=== PATIENT | male | born 1965 | race Caucasian/White ===

== ENCOUNTER 2018-09-30 18:54 | Emergency (ER) | payer BC ==
[~2018-09-30] VITALS: Ht 182.9 cm; Wt 77.1 kg
--- OUTSIDE RECORDS SUMMARY | 2018-09-30 19:00 | XMS REPORT ---
Author Author Harriet Bearden [facility] Address [address] [place], [place] [id number] Care Team Providers Care Cell Tester Name Role Phone Harriet Bearden PCP Allergies and Adverse Reactions Name Reaction Notes NO KNOWN DRUG ALLERGIES Plan of Treatment Planned Activity Comments Planned Date Planned Time Plan/Goal CBC for General Health Panel 05/17/2018 12:00 AM EKG. 05/17/2018 12:00 AM CX CHEST 2 VIEWS 05/17/2018 12:00 AM Lumbar Spine 2-3 Views - Main 05/17/2018 12:00 AM Medications Name Start Date Expiration Date SIG Comments Yeaddiss 5-325 mg oral tablet 08/21/2015 take 1-2 tablets by oral route every 4 hours Discontinued Name Start Date Discontinued Date SIG Comments Cardura Oral 08/19/2015 diclofenac sodium 50 mg oral tablet,delayed release (DR/EC) 08/19/2015 take 1 tablet (50 mg) by oral route 3 times per day doxazosin oral 08/19/2015 baclofen oral 08/19/2015 Problem List Description Status Onset Hypertension Active Back Pain Active Benign Hypertrophy of Prostate (BPH) Active Vital Signs Date Time BP-Sys(mm[Hg] BP-Regla(mm[Hg]) HR(bpm) RR(rpm) Temp WT HT HC BMI BSA BMI Percentile O2 Sat(%) 05/17/2018 10:13:00 AM 132 mmHg 72 mmHg 65 bpm 18 rpm 98.1 F 167 lbs 71 in 23.2915 kg/m 1.948 m 98 % 08/19/2015 2:39:00 PM 140 mmHg 74 mmHg 85 bpm 20 rpm 96.8 F 162 lbs 71 in 22.59 kg/m2 1.92 m2 97 % 02/28/2014 7:55:00 AM 133 mmHg 85 mmHg 74 bpm 20 rpm 98.2 F 174 lbs 71 in 24.2678 kg/m 1.9884 m 03/02/2013 3:27:00 PM 136 mmHg 76 mmHg 86 bpm 18 rpm 98.1 F 176.125 lbs 71 in 24.5642 kg/m 2.00 m2 96 % Social History Name Description Comments Tobacco 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 yellow Glucose Ur-sCnc neg Bilirub Ur Ql Strip neg Ketones Ur Ql Strip neg Sp Gr Ur Qn 1.015 Hgb Ur Ql Strip trace- intact pH Ur-LsCnc 5.0 Prot Ur Ql Strip neg Urobilinogen Ur-mCnc 0.2eu/dl Nitrite Ur Ql Strip neg WBC Est Ur Ql Strip neg History Of Immunizations Not available. History of Past Illness Name Date of Onset Comments Hypertension Benign Hypertrophy of Prostate (BPH) Back Pain Colonic Polyps, Personal History of Tubular adenoma @ 15 cm DOT Mar 02 2013 3:33PM Carpal Tunnel Syndrome Mar 09 2013 8:37AM Colon Cancer Screening Feb 28 2014 7:59AM Family History of Colon Cancer Feb 28 2014 7:59AM Recurrent left inguinal hernia Aug 19 2015 3:19PM Postoperative Follow-Up Visit Sep 09 2015 3:07PM Postoperative Follow-Up Visit Sep 23 2015 2:22PM Encounter for occupational health examination May 17 2018 10:15AM Payers Insurance Name Company Name Plan Name Plan Number Policy Number Policy Group Number Start Date Nationwide Insurance Nationwide Insurance [id number] N/A [facility] Med Occupational Medicine [id number] N/A BCBS [facility] [id number] Friday, April 21, 2000 History of Encounters Visit Date Visit Type Provider 05/17/2018 Office visit Harriet Bearden APRN 09/23/2015 Office visit Duarte Joyner MD 09/09/2015 Office visit Duarte Joyner MD 08/29/2015 [facility] Duarte Joyner MD 08/19/2015 Office visit Duarte Joyner MD 04/30/2014 Voided DUARTE THORNE 03/08/2014 [facility] Duarte Joyner MD 02/27/2014 Office visit Duarte Joyner MD 03/09/2013 Procedures Carlee Parker MD 03/02/2013 Office visit Harriet Bearden APRN
--- OUTSIDE RECORDS SUMMARY | 2018-09-30 19:00 | XMS REPORT ---
Author Author Harriet Bearden [facility] Address [address] [place], [place] [phone] Care Team Providers Care Farmworker Field Crop Name Role Phone Harriet Bearden PCP Allergies and Adverse Reactions Name Reaction Notes NO KNOWN DRUG ALLERGIES Plan of Treatment Planned Activity Comments Planned Date Planned Time Plan/Goal CBC for General Health Panel 05/17/2018 12:00 AM EKG. 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 Date Ordered Description Order Status 05/17/2018 12:00 AM CHEST X-RAY 2VW FRONTAL&LATL Returned 05/17/2018 12:00 AM X-RAY EXAM L-S SPINE 2/3 VWS Returned 05/17/2018 12:04 PM URINALYSIS AUTO W/O SCOPE [...] Number Start Date Nationwide Insurance Nationwide Insurance [id number] N/A [facility] Med Occupational Medicine [id number] N/A BCBS [facility]cbs [facility] [id number] Friday, April 21, 2000 History of Encounters Visit Date Visit Type Provider 05/17/2018 Office visit Harriet Bearden MARINE SCIENTIST 09/23/2015 Office visit Duarte Joyner MD 09/09/2015 Office visit Duarte Joyner MD 08/29/2015 [facility] Duarte Joyner MD 08/19/2015 Office visit Duarte Joyner MD 04/30/2014 Voided DUARTE THORNE 03/08/2014 Hospital Duarte Joyner MD 02/27/2014 Office visit Duarte Joyner MD 03/09/2013 Procedures Carlee Parker MD 03/02/2013 Office visit Harriet Bearden APRN
--- OUTSIDE RECORDS SUMMARY | 2018-09-30 19:00 | XMS REPORT | CCD ---
Author Author ALAN KIM Organization Unknown Address [address] [address] [place], [place] [phone] Care Team Providers Care Philatelic Consultant Name Role Phone BRIGITTE WILLSON MD Vital Signs Vital Sign Value Unit Date/Time Recent/Initial? Weight Measured 162 lbs 08/28/2015 12:28 Initial VS Height 71 in 08/28/2015 12:28 Initial VS BMI (Body Mass Index) 22.59 kg/m^2 08/28/2015 12:28 Initial VS BSA (Body Surface Area) 1.92 m^2 08/28/2015 12:28 Initial VS BP Systolic 124 mmHg 08/29/2015 09:49 Initial VS BP Diastolic 81 mmHg 08/29/2015 09:49 Initial VS Respiratory Rate 12 bpm 08/29/2015 09:49 Initial VS Heart Rate 79 bpm 08/29/2015 09:49 Initial VS O2 % BldC Oximetry 100 % 08/29/2015 09:49 Initial VS BP Systolic 121 mmHg 08/29/2015 13:33 Most Recent VS BP Diastolic 78 mmHg 08/29/2015 13:33 Most Recent VS Respiratory Rate 17 bpm 08/29/2015 13:33 Most Recent VS Heart Rate 85 bpm 08/29/2015 13:33 Most Recent VS O2 % BldC Oximetry 98 % 08/29/2015 13:33 Most Recent VS Allergies Allergy Code Allergy Type Reaction Status No Known Drug Allergies 0 No known drug allergies Active Procedures Procedure Code Procedure Type Date Laparoscopy, surgical; repair recurrent inguinal hernia 94664 CPT 08/29/2015 History of Immunizations Immunization Code Date Hep B, adult 43 04/05/2000 Hep B, adult 43 06/18/2000 Hep B, adult 43 10/14/2000 Problems Unknown or Not Available. Results Unknown or Not Available. Active Medications No Active Medications Medications Administered During Visit Unknown or Not Available. Encounters Encounter Diagnosis Diagnosis Code Start Date Unilateral inguinal hernia, without obstruction or gangrene, recurrent [id number] 08/29/2015 Social History Smoking Status Code Start Date End Date Current every day smoker [id number] Patient Decision Aids Patient Decision Aid HERNIA REPAIR; AFTER THE PROCEDURE Discharge Instructions You were admitted to [facility] on 08/29/2015 09:16 with a principal diagnosis of Unilateral inguinal hernia, without obstruction or gangrene, recurrent You had the following procedures done: Laparoscopy, surgical; repair recurrent inguinal hernia You were discharged from [facility] on 08/29/2015 14:43 Should you have any questions prior to discharge, please contact a member of your healthcare team. If you have left the hospital and have any questions, please contact your primary care physician. Chief Complaint and Reason For Visit Chief Complaint Date of Onset ROBOTIC HERNIA Function Status Unknown or Not Available. Plan of Care Unknown or Not Available. Referral/Transition of Care Unknown or Not Available.
--- OUTSIDE RECORDS SUMMARY | 2018-09-30 19:01 | XMS REPORT | Continuity of Care Document ---
Author Organization Unknown Address Unknown Allergies Active Description Code Type Severity Reaction Onset Reported/Identified Relationship to Patient Clinical Status Yes No Known Drug Allergies [id number] N/A N/A Yes No known allergies Drug N/A N/A Medications There is no data. Problems There is no data. Procedures There is no data. Results There is no data. Encounters ACCT No. Visit Date/Time Discharge Status Pt. Type Provider Facility Loc./Unit Complaint [id number] 05/17/2018 10:45:01 05/17/2018 23:59:59 CLS Outpatient Harriet Bearden [id number] 09/18/2015 09:51:25 09/18/2015 23:59:59 CLS Outpatient Duarte Joyner [id number] 09/09/2015 15:53:23 09/09/2015 23:59:59 [facility] Outpatient Duarte Joyner [id number] 08/19/2015 15:31:39 08/19/2015 23:59:59 [facility] Outpatient Duarte Joyner [id number] 04/30/2014 16:02:32 04/30/2014 23:59:59 CLS Outpatient DUARTE KIMBLE [id number] 03/14/2014 14:39:02 03/14/2014 23:59:59 [facility] Outpatient Duarte Joyner [id number] 02/27/2014 16:46:32 02/27/2014 23:59:59 [facility] Outpatient Duarte Joyner [id number] 12/30/2016 14:38:28 Document Registration [id number] 05/18/2018 09:58:07 Document Registration [id number] 05/17/2018 10:49:39 Document Registration [id number] 05/17/2018 10:42:45 Document Registration [id number] 05/06/2018 10:00:40 Document Registration
--- OUTSIDE RECORDS SUMMARY | 2018-09-30 19:01 | XMS REPORT ---
Author Author Duarte Joyner [facility] Address [address] [place], [place] [id number] Care Team Providers Care Urologic Nurse Name Role Phone Duarte Joyner PCP Unavailable Allergies and Adverse Reactions Name Reaction Notes NO KNOWN DRUG ALLERGIES Plan of Treatment Not available. 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 History Of Immunizations Not available. History of [...] Postoperative Follow-Up Visit Sep 09 2015 3:07PM Payers Insurance Name Company Name Plan Name Plan Number Policy Number Policy Group Number Start Date Nationwide Insurance Nationwide Insurance [id number] N/A [facility] Med Occupational Medicine [id number] N/A BCBS [facility]cbs [facility] [id number] Friday, April 21, 2000 History of Encounters Visit Date Visit Type Provider 09/09/2015 Office visit Duarte Joyner MD 08/19/2015 Office visit Duarte Joyner MD 04/30/2014 Voided DUARTE THORNE 03/08/2014 Hospital Duarte Joyner MD 02/27/2014 Office visit Duarte Joyner MD 03/09/2013 Procedures Carlee Parker MD 03/02/2013 Office visit Harriet Bearden APRN
--- OUTSIDE RECORDS SUMMARY | 2018-09-30 19:01 | XMS REPORT ---
Author Author Duarte Joyner [facility] Address [address] [place], [place] [phone] Care Team Providers Care Meal Miller Name Role Phone Duarte Joyner PCP Unavailable Allergies and Adverse Reactions Name Reaction Notes NO KNOWN DRUG ALLERGIES Plan of Treatment Not available. 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 Procedures Date Ordered Description [...] Postoperative Follow-Up Visit Sep 23 2015 2:22PM Payers Insurance Name Company Name Plan Name Plan Number Policy Number Policy Group Number Start Date Nationwide Insurance Nationwide Insurance [id number] N/A [facility] Med Occupational Medicine [id number] N/A [facility] [id number] Friday, April 21, 2000 History of Encounters Visit Date Visit Type Provider 09/23/2015 Office visit Duarte Joyner MD 09/09/2015 Office visit Duarte Joyner MD 08/29/2015 [facility] Duarte Joyner MD 08/19/2015 Office visit Duarte Joyner MD 04/30/2014 Voided DUARTE THORNE 03/08/2014 [facility] Duarte Joyner MD 02/27/2014 Office visit Duarte Joyner MD 03/09/2013 Procedures Carlee Parker MD 03/02/2013 Office visit Harriet Bearden APRN
--- OUTSIDE RECORDS SUMMARY | 2018-09-30 19:01 | XMS REPORT ---
Author Author Duarte Joyner [facility] Address [address] [place], [place] [phone] Care Team Providers Care Traffic Reporter Name Role Phone Duarte Joyner PCP Unavailable Allergies and Adverse Reactions Name Reaction Notes NO KNOWN DRUG ALLERGIES Plan of Treatment Not available. 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 Procedures Date Ordered Description Order [...] left inguinal hernia Aug 19 2015 3:19PM Payers Insurance Name Company Name Plan Name Plan Number Policy Number Policy Group Number Start Date BCBS Bcbs [facility] [id number] Friday, 2000 Nationwide Insurance Nationwide Insurance [id number] N/A [facility] Med Occupational Medicine [id number] N/A History of Encounters Visit Date Visit Type Provider 08/19/2015 Office visit Duarte Joyner MD 04/30/2014 Voided DUARTE THORNE 03/08/2014 Hospital Duarte Joyner MD 02/27/2014 Office visit Duarte Joyner MD 03/09/2013 Procedures Carlee Parker MD 03/02/2013 Office visit Harriet Bearden APRN
--- OUTSIDE RECORDS SUMMARY | 2018-09-30 19:01 | XMS REPORT ---
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
--- OUTSIDE RECORDS SUMMARY | 2018-09-30 19:01 | XMS REPORT ---
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
[2018-09-30] MEDS ORDERED: CARV3.122 PO (19:06)
[2018-09-30] MEDS ORDERED: ATOR80TA76 PO (19:07)
[2018-09-30] MEDS ORDERED: CLOP75TA28 PO (19:07)
[2018-09-30] MEDS ORDERED: RAMI2.5C2 PO (19:07)
[2018-09-30] MEDS ORDERED: ASPI-586 PO (19:08)
[2018-09-30] MEDS ORDERED: PHENYLEPHRINE 0.25% NASAL SPR (NEO-SYNEPHRINE) 15 ML NS STA (19:16)
--- NOTE | 2018-09-30 19:25 | ED EENT ---
History of Present Illness General Chief Complaint: Nasal Problems Stated Complaint: NOSE BLEEDING Nursing Triage Note: PATIENT AMBULATORY TO ER WITH COMPLAINT OF NOSEBLEED THIS EVENING. PATIENT STATES HE HAPPENED TO PICK HIS NOSE AT APPROXIMATELY 5 PM AND HIS NOSE STARTED BLEEDING. HE STATES HE HAS NOT BEEN ABLE TO GET THE BLEEDING TO STOP. PATIENT IS ON BLOOD THINNERS. PATIENT STATES INITIALLY JUST THE LEFT NOSTRIL WAS BLEEDING BUT BOTH NOTRILS ARE BLEEDING. Source: patient Exam Limitations: no limitations History of Present Illness Date Seen by Provider: Sep 30, 2018 Time Seen by Provider: 19:07 Initial Comments Here with report of nosebleed that is on the left side and started between 5 and 5:30 PM. He is on blood thinners including clopidogrel and aspirin. He tried to plug his nostril and then the blood started coming out the right side as well. He is holding paper towels over his nose and pinching the low portion. Denies injury. He has not had nosebleeds like this previously. He has on the clopidogrel secondary to stent placed 2 years ago. Timing/Duration: abrupt Severity: moderate Location: nose Prearrival Treatment: squeezing nostrils, nasal packing Associated Symptoms: No cough, No fever, No sinus infection Allergies and Home Medications Allergies Coded Allergies: No Known Drug Allergies (Unverified , 09/30/18) Home Medications Aspirin 81 Mg Tablet.dr, 81 MG PO DAILY, (Reported) Atorvastatin Calcium 80 Mg Tablet, 80 MG PO DAILY, (Reported) Carvedilol 3.125 Mg Tablet, 3.125 MG PO BID, (Reported) Clopidogrel Bisulfate 75 Mg Tablet, 75 MG PO DAILY, (Reported) Ramipril 2.5 Mg Capsule, 2.5 MG PO DAILY, (Reported) Patient Home Medication List Home Medication List Reviewed: Yes Review of Systems Review of Systems Constitutional: see HPI; No chills, No fever Nose: see HPI, clots, epistaxis Mouth: no symptoms reported Throat: no symptoms reported Respiratory: no symptoms reported Cardiovascular: see HPI; No chest pain, No palpitations Gastrointestinal: no symptoms reported Neurological: No Symptoms Reported Past Rbkisek-Gtznoc-Kgxous Hx Past Med/Social Hx: Reviewed Nursing Past Med/Soc Hx Patient Social History Alcohol Use: Denies Use Recreational Drug Use: No Smoking Status: Current Everyday Smoker Type Used: Cigarettes 2nd Hand Smoke Exposure: Yes Recent Foreign Travel: No Contact w/Someone Who Travel: No Recent Infectious Disease Expo: No Recent Hopitalizations: No Immunizations Up To Date PED Vaccines UTD: Yes Seasonal Allergies Seasonal Allergies: Yes Past Medical History Surgeries: Yes (HERNIA REPAIR, 2 CARDIAC STENTS) Coronary Stent Respiratory: No Cardiac: Yes (2 STENTS) Coronary Artery Disease, High Cholesterol, Hypertension Neurological: No Genitourinary: No Gastrointestinal: No Musculoskeletal: No Endocrine: No HEENT: Yes (NOSE BLEEDS) Cancer: No Psychosocial: No Integumentary: No Blood Disorders: No Family Medical History Reviewed Nursing Family Hx Physical Exam Vital Signs Vital Signs - First Documented 09/30/18 18:58 Temp 98.4 Pulse 71 Resp 18 B/P (MAP) 138/92 (107) O2 Delivery Room Air Height, Weight, BMI Height: 6'0" Weight: 170lbs. oz. 77.540689mt; BMI Method:Stated General Appearance: WD/WN, no apparent distress Eyes: bilateral eye normal inspection, bilateral eye PERRL, bilateral eye EOMI Nose: active bleeding; No sinus tenderness Mouth/Throat: normal mouth inspection, other (old blood in the pharynx) Neck: full range of motion, supple Cardiovascular: regular rate, rhythm, no murmur Respiratory: lungs clear, normal breath sounds Gastrointestinal: non tender, soft Neurologic/Psychiatric: alert, oriented x 3 Skin: normal color, warm/dry Progress/Results/Core Measures Results/Orders My Orders Orders - BONITA REIS MD Phenylephrine 0.25% Nasal Spra (Augusto-Syne (09/30/18 19:16) Tranexamic Acid Injection (Cyklokapron I (09/30/18 20:00) Medications Given in ED Current Medications Medications Dose Ordered Sig/Jaqui Route Start Time Stop Time Status Last Admin Dose Admin Tranexamic Acid 100 mg ONCE ONCE IV 09/30/18 20:00 09/30/18 20:01 DC 09/30/18 20:14 100 MG Vital Signs/I&O 09/30/18 18:58 Temp 98.4 Pulse 71 Resp 18 B/P (MAP) 138/92 (107) O2 Delivery Room Air Blood Pressure Mean: 107 Progress Progress Note : Progress Note Seen and evaluated. Old blood self-evacuated from posterior pharynx. Blood continues from left nare. Augusto-Synephrine 4 sprays to each nostril and external pressure reapplied by patient. Monitor patient. 2009: Patient had continued bleeding. Nasal packing soaked with TXA approximately 100 mg topically applied to the left nare. 2114: Bleeding was not abated with nasal packing. Rapid Rhino 7.5 cm placed and balloon expanded until bleeding was controlled. This did stop the bleeding. I did discuss with the patient about having to keep this in place. We will keep this place until Wednesday, 2 days from now on we will remove it in the emergency department if all remains stable. If not then he will need follow-up with your nose and throat surgeon. This was discussed with the patient family who agree. Discharged home with return precautions. Patient verbalized understanding instructions and agreement with plan. Departure Impression Primary Impression: Epistaxis Disposition: HOME, SELF-CARE Condition: Improved Departure-Patient Inst. Decision time for Depature: 21:22 Referrals: NO,LOCAL PHYSICIAN (PCP/Family) Primary Care Physician Patient Instructions: Nosebleeds (DC) Add. Discharge Instructions: All discharge instructions reviewed with patient and/or family. Voiced understanding. Keep the packing in place until Wednesday. Return here on Wednesday for packing removal. If you have increased bleeding or persistent bleeding, return for reevaluation. Return for worse pain, fever, vomiting, weakness, breathing problems, fever or other concerns as needed. It is okay for you to continue your home medications. BONITA REIS MD Sep 30, 2018 19:25
[2018-09-30] MEDS ORDERED: TRANEXAMIC ACID 100 MG/ML 10 ML INJECTION IV ONE (20:00)
--- NOTE | 2018-09-30 21:10 | NUR ---
RAPID SATISH 7.[address] REIS, INFLATED WITH 6CC OF AIR.
[2018-09-30 21:38] VITALS: BP 135/90
== END 2018-09-30 21:39 | disposition home or self-care (01) ==
LOC: EDUNIT# 18:54 → ER 18:56
DX: R04.0 Epistaxis (principal); I25.10 Atherosclerotic heart disease of native coronary artery without angina pectoris; E78.00 Pure hypercholesterolemia, unspecified; I10 Essential (primary) hypertension; F17.210 Nicotine dependence, cigarettes, uncomplicated; Z95.5 Presence of coronary angioplasty implant and graft; Z79.02 Long term (current) use of antithrombotics/antiplatelets; Z79.82 Long term (current) use of aspirin; Z77.22 Contact with and (suspected) exposure to environmental tobacco smoke (acute) (chronic); Z98.890 Other specified postprocedural states

== ENCOUNTER 2018-10-02 10:55 | Emergency (ER) | payer BC ==
[~2018-10-02] VITALS: Ht 182.9 cm; Wt 77.1 kg
[~2018-10-02 10:55] MED LIST: ASPI-586 PO; ATOR80TA76 PO; CARV3.122 PO; CLOP75TA28 PO; RAMI2.5C2 PO
--- NOTE | 2018-10-02 11:22 | ED Suture Removal/Wound Check ---
Suture/Wound Re-check Suture Removal/Wound Recheck : Suture Removal/Wound Recheck: Packing removed Progress 53-year-old male who presents to the emergency room with complaints of rapid Rhino packing to his left nostril. This was placed 2 days ago in the emergency room by Dr. Martin and he was instructed to follow-up today for removal. I have removed the packing and the near remains free of blood at this time. Patient denies pain. General Appearance: WD/WN, no apparent distress Neuro/Tendon: normal sensation Skin Exam: normal color, warm/dry Physical Exam Vital Signs Capillary Refill : General Appearance: WD/WN, no apparent distress HEENT: PERRL/EOMI, normal ENT inspection, TMs normal, pharynx normal Cardiovascular: normal peripheral pulses, regular rate, rhythm, no edema, no gallop, no JVD, no murmur Respiratory: chest non-tender, lungs clear, normal breath sounds, no respiratory distress, no accessory muscle use Neurologic/Psychiatric: alert, normal mood/affect, oriented x 3 Skin: normal color, warm/dry Departure Impression Primary Impression: resolved epistaxis Disposition: 01 HOME, SELF-CARE Condition: Stable/Unchanged Departure-Patient Inst. Decision time for Depature: 11:21 Referrals: NO,LOCAL PHYSICIAN (PCP/Family) Primary Care Physician Patient Instructions: Nosebleeds (DC) Add. Discharge Instructions: Try to avoid blowing your nose or sneezing as this will potentially cause your nose to bleed again. If your nose should start to bleed try to apply manual pressure to get the bleeding to stop. Return back to the emergency room if you cannot get the bleeding to stop, for worsening symptoms, or concerns as needed. Follow-up with her primary care provider as needed. All discharge instructions reviewed with patient and/or family. Voiced understanding. TEE STOKES Oct 02, 2018 11:22
[2018-10-02 11:35] VITALS: BP 132/88
--- OUTSIDE RECORDS SUMMARY | 2018-10-02 14:08 | XMS REPORT | Continuity of Care Document ---
Author Organization Unknown Address Unknown Allergies Active Description Code Type Severity Reaction Onset Reported/Identified Relationship to Patient Clinical Status Yes No Known Drug Allergies [id number] N/A N/A Yes No known allergies Drug N/A N/A Medications There is no data. Problems There is no data. Procedures There is no data. Results There is no data. Encounters ACCT No. Visit Date/Time Discharge Status Pt. Type Provider Facility Loc./Unit Complaint [id number] 05/17/2018 10:45:01 05/17/2018 23:59:59 [facility] Outpatient Harriet Bearden [id number] 09/18/2015 09:51:25 09/18/2015 23:59:59 [facility] Outpatient Duarte Joyner [id number] 09/09/2015 15:53:23 09/09/2015 23:59:59 [facility] Outpatient Duarte Joyner [id number] 08/19/2015 15:31:39 08/19/2015 23:59:59 [facility] Outpatient Duarte Joyner [id number] 04/30/2014 16:02:32 04/30/2014 23:59:59 [facility] Outpatient DUARTE KIMBLE [id number] 03/14/2014 14:39:02 03/14/2014 23:59:59 [facility] Outpatient Duarte Joyner [id number] 02/27/2014 16:46:32 02/27/2014 23:59:59 [facility] Outpatient Duarte Joyner [id number] 12/30/2016 14:38:28 Document Registration [id number] 05/18/2018 09:58:07 Document Registration [id number] 05/17/2018 10:49:39 Document Registration [id number] 05/17/2018 10:42:45 Document Registration [id number] 05/06/2018 10:00:40 Document Registration
== END 2018-10-02 11:35 | disposition home or self-care (01) ==
LOC: EDUNIT# 10:55 → ER 10:58
DX: R04.0 Epistaxis (principal)